=== PATIENT | male | born 1985 | race Caucasian/White ===

== ENCOUNTER 2016-09-02 23:15 | Emergency (ER) | payer MEDICAID ==
[2016-09-03 00:29] LABS: BASOPHIL % 0.5 % (0-2); PLATELET COUNT 247 x10^3mcL (130-400); RED CELL DISTRIBUTION WIDTH 14.2 % (11.5-14.5)
[2016-09-03 00:32] LABS: CALCIUM 9.8 mg/dL (8.5-10.1); CARBON DIOXIDE 30.2 mmol/L (21-32); CHLORIDE SERUM 101 mmol/L (98-107); CREATININE SERUM 1.3 mg/dL (0.7-1.3); GFR1 > 60 mL/min; GLUCOSE SERUM 95 mg/dL (74-106); POTASSIUM SERUM 3.8 mmol/L (3.5-5.1); SODIUM SERUM 140 mmol/L (136-145)
[2016-09-03 00:37] LABS: ALBUMIN 4.2 g/dL (3.4-5.0); ALKALINE PHOSPHATASE 118 U/L (46-116); ALT/SGPT 56 U/L (16-63); AST/SGOT 57 U/L (15-37); BILIRUBIN TOTAL 0.1 mg/dL (0.20-1.00)
[2016-09-03 00:41] LABS: TOTAL PROTEIN, SERUM 8.3 g/dL (6.4-8.2)
[2016-09-03 01:06] VITALS: BP 138/94
== END 2016-09-03 01:08 | disposition home or self-care (01) ==
LOC: ED 23:15
PROVIDERS: Emergency Medicine
DX: R04.0 Epistaxis (principal)
CPT/HCPCS: 36415

== ENCOUNTER 2017-03-01 14:52 | Emergency (ER) | payer MEDICAID ==
[~2017-03-01] VITALS: Ht 157.5 cm; Wt 75.7 kg
[2017-03-01 15:04] VITALS: BP 148/91
== END 2017-03-01 16:25 | disposition home or self-care (01) ==
LOC: ED 14:52
DX: S82.891D Other fracture of right lower leg, subsequent encounter for closed fracture with routine healing (principal); S62.101D Fracture of unspecified carpal bone, right wrist, subsequent encounter for fracture with routine healing; X58.XXXD Exposure to other specified factors, subsequent encounter